=== PATIENT | female | born 1980 | race Asian ===

== ENCOUNTER 2017-08-02 12:34 | Day surgery (SDC) | payer BC ==
[2017-08-02] MEDS ORDERED: PROPOFOL 200 MG/20 ML BOTTLE IV ONE (12:35)
[2017-08-02] MEDS ORDERED: LIDOCAINE HCL 2% 20 ML VIAL MC ONE (12:35)
[2017-08-02 13:27] LABS: *URINE HCG, QUAL NEGATIVE (NEGATIVE)
[2017-08-02 13:28] LABS: BASOPHILS # (AUTO) 0.1 K/uL (0.0-8.0); BASOPHILS % (AUTO) 1.2 % (0.0-2.0); EOSINOPHILS # (AUTO) 0.4 K/uL (0.0-0.7); EOSINOPHILS % (AUTO) 7.4 % (0.0-7.0); HEMATOCRIT 41.5 % (37-47); HEMOGLOBIN 13.8 G/DL (12.0-16.0); LYMPHOCYTES # (AUTO) 1.1 K/UL (0.8-4.8); LYMPHOCYTES % (AUTO) 22.2 % (20.5-51.5); MEAN CORPUSCULAR HEMOGLOBIN 30.9 UUG (27.0-31.0); MEAN CORPUSCULAR HGB CONC 33 g/dL (32.0-37.0); MEAN CORPUSCULAR VOLUME 93.1 FL (81.0-99.0); MONOCYTES # (AUTO) 0.5 K/UL (0.1-1.30); MONOCYTES % (AUTO) 10.8 % (0.0-11.0); NEUTROPHILS # (AUTO) 2.9 K/UL (1.8-8.9); NEUTROPHILS % (AUTO) 58.4 % (38.5-71.5); PLATELET COUNT (AUTO) 263 K/UL (150-450); RED BLOOD CELL COUNT(AUTO) 4.45 MIL/UL (4.2-5.4)
[2017-08-02 13:35] LABS: CREATININE 0.7 mg/dL (0.6-1.3); POTASSIUM 3.7 mmol/L (3.5-5.1)
[2017-08-03 08:07] LABS: HEPATITIS A AB, IgM Negative (Negative); HEPATITIS A AB, TOTAL Positive (Negative)
== END 2017-08-02 16:40 | disposition home or self-care (01) ==
LOC: DS 12:34
PROVIDERS: ATTEND Internal Medicine Gastroenterology
DX: K59.00 Constipation, unspecified (principal); K64.8 Other hemorrhoids; K29.70 Gastritis, unspecified, without bleeding
CPT/HCPCS: 36415; 43239; 45378; 76700; 80048; 82150; 83690; 84703; 85025; 85730; 86704; 86705; 86708; 86709; 86803; A4217; A4663; J3490 ×2; J7120